=== PATIENT | male | born 1935 | race Caucasian/White ===

== ENCOUNTER 2024-02-07 19:39 | Observation (INO) | payer MEDICARE ==
[~2024-02-07] VITALS: Ht 177.8 cm; Wt 63.4 kg
[2024-02-07 20:25] LABS: BASOPHILS ABSOLUTE AUTO 0.05 K/mm3 (0.00-0.23); BASOPHILS PERCENT AUTO 1 % (0-2); EOSINOPHILS ABSOLUTE AUTO 0.08 K/mm3 (0.00-0.68); EOSINOPHILS PERCENT AUTO 1 % (0-6); Hematocrit 29.2 % (37.0-53.0); Hemoglobin 9.7 g/dL (13.5-17.5); IMMATURE GRAN ABSOLUTE AUTO 0.04 K/mm3 (0.00-0.10); IMMATURE GRAN PERCENT AUTO 1 % (0-1); LYMPHOCYTES PERCENT AUTO 18 % (21-46); MONOCYTES ABSOLUTE AUTO 0.73 K/mm3 (0.16-1.47); MONOCYTES PERCENT AUTO 8 % (4-13); Mean Corpuscular HGB 28.9 pg (26.0-34.0); Mean Corpuscular HGB Conc 33.2 g/dL (31.5-36.5); Mean Corpuscular Volume 87 fL (80-100); Mean Platelet Volume 11.4 fL (9.1-12.4); NEUTROPHILS ABSOLUTE AUTO 6.26 K/mm3 (1.96-9.15); NEUTROPHILS PERCENT AUTO 71 % (41-73); Platelet Count 196 K/mm3 (150-400); RDW Coefficient Variation 16.6 % (11.7-14.2); Red Blood Cell Count 3.36 M/mm3 (4.30-5.90); White Blood Cell Count 8.76 K/mm3 (4.00-11.30)
[2024-02-07 20:41] LABS: International Normalized Ratio 1.17; Prothrombin Time Results 12.4 Sec (9.7-11.5)
[2024-02-07 20:44] LABS: Albumin, Blood 3.2 g/dL (3.4-5.0); Albumin/Globulin Ratio 0.8 (0.8-1.8); Bilirubin, Total 1.6 mg/dL (0.1-1.0); Bun/Creatinine Ratio 20.8 (12.0-20.0); Calcium, Blood 8.6 mg/dL (8.5-10.1); Creatinine, Blood 0.91 mg/dL (0.60-1.20); Globulin, Blood 4.1 g/dL (2.2-4.0); Potassium, Blood 3.3 mmol/L (3.5-5.5); Total Protein, Blood 7.3 g/dL (6.4-8.2)
[2024-02-08] MEDS ORDERED: Potassium Chloride 10 Meq Tablet SA PO ONE (03:50)
[2024-02-08] MEDS ORDERED: Mag Sulfate 1 GM/D5% 100ML 100 ML IV STA (07:55)
[2024-02-08 08:43] VITALS: BP 145/60
[2024-02-08] MEDS ORDERED: Apixaban 5 MG Tab PO SCH (09:00)
[2024-02-08 09:06] LABS: BASOPHILS ABSOLUTE AUTO 0.05 K/mm3 (0.00-0.23); BASOPHILS PERCENT AUTO 1 % (0-2); EOSINOPHILS ABSOLUTE AUTO 0.08 K/mm3 (0.00-0.68); EOSINOPHILS PERCENT AUTO 1 % (0-6); Hematocrit 28.1 % (37.0-53.0); Hemoglobin 9.1 g/dL (13.5-17.5); IMMATURE GRAN ABSOLUTE AUTO 0.02 K/mm3 (0.00-0.10); IMMATURE GRAN PERCENT AUTO 0 % (0-1); LYMPHOCYTES ABSOLUTE AUTO 1.44 K/mm3 (0.84-5.20); LYMPHOCYTES PERCENT AUTO 20 % (21-46); MONOCYTES ABSOLUTE AUTO 0.66 K/mm3 (0.16-1.47); MONOCYTES PERCENT AUTO 9 % (4-13); Mean Corpuscular HGB 28.1 pg (26.0-34.0); Mean Corpuscular HGB Conc 32.4 g/dL (31.5-36.5); Mean Corpuscular Volume 87 fL (80-100); Mean Platelet Volume 11.1 fL (9.1-12.4); NEUTROPHILS ABSOLUTE AUTO 5.01 K/mm3 (1.96-9.15); NEUTROPHILS PERCENT AUTO 69 % (41-73); Platelet Count 193 K/mm3 (150-400); RDW Coefficient Variation 16.5 % (11.7-14.2); RDW Standard Deviation 52.4 fL (35.1-46.3); Red Blood Cell Count 3.24 M/mm3 (4.30-5.90); White Blood Cell Count 7.26 K/mm3 (4.00-11.30)
[2024-02-08 09:22] LABS: Bun/Creatinine Ratio 19.9 (12.0-20.0); Calcium, Blood 8.8 mg/dL (8.5-10.1); Creatinine, Blood 0.81 mg/dL (0.60-1.20); Potassium, Blood 3.5 mmol/L (3.5-5.5)
[2024-02-08] MEDS ORDERED: ATOR10 PO (10:38)
[2024-02-08] MEDS ORDERED: FERSU300 PO (10:38)
[2024-02-08] MEDS ORDERED: LOPE2C PO (10:39)
[2024-02-08] MEDS ORDERED: OMEP20ER PO (10:40)
[2024-02-08] MEDS ORDERED: ELIQUIS5 M2 PO (10:41)
[2024-02-08] MEDS ORDERED: AMLO10 PO (10:41)
[2024-02-08] MEDS ORDERED: LISI5 PO (10:42)
[2024-02-08] MEDS ORDERED: THERA-D2000 UNIT PO (10:43)
[2024-02-08] MEDS ORDERED: FINA5 PO (10:43)
[2024-02-08] MEDS ORDERED: LUTEIN20 MG PO (10:44)
[2024-02-08 14:31] VITALS: BP 123/56
--- NOTE | 2024-02-08 16:54 | NUR ---
CONSULT CALLED TO DR SMITH
--- NOTE | 2024-02-08 17:19 | NUR ---
SHIFT SUMMARY PATIENT ARRIVED TO FLOOR THIS AM FROM ER. IV TO R ARM IN PLACE. L ARM WRAPED WRIST TO SHOULDER WITH ZARINA WRAP WHICH WAS REMOVED, HAND SHOWING 2+ EDEMA. ARM ELEVATED, SKIN BLACK/PURPLE IN COLOR, 2+ NON PITTING EDEMA THROUGHOUT ARM, FULL SENSATION. A/OX4. WILL GO FOR MRI THIS SHIFT. ORTHO CONSULT CALLED IN TO DR SMITH. RED BLANCHABLE COCCYX, MEPILEX APPLIED, EGG CRATE TO BED PLACED. MIXED CONTINENCE OF BOWEL AND BLADDER. PATIENT ABLE TO MAKE NEEDS KNOWN. CALL LIGHT IN REACH, BED LOW POSITION.
[2024-02-08] MEDS ORDERED: Atorvastatin 10 MG Tab PO SCH (21:00)
[2024-02-08] MEDS ORDERED: Lisinopril 5 MG Tab PO SCH (21:00)
[2024-02-08] MEDS ORDERED: Finasteride 5 MG Tab PO SCH (21:00)
[2024-02-08] MEDS ORDERED: Ferrous Sulfate 325 MG Tab PO SCH (21:00)
[2024-02-08 21:03] VITALS: BP 119/58
[2024-02-09 03:37] VITALS: BP 117/50
--- NOTE | 2024-02-09 04:36 | NUR ---
Pt denies c/o. No distress noted. Pt resting quietly.
[2024-02-09] MEDS ORDERED: Omeprazole 20 MG CapCR PO SCH (06:00)
[2024-02-09 06:08] LABS: BASOPHILS ABSOLUTE AUTO 0.03 K/mm3 (0.00-0.23); BASOPHILS PERCENT AUTO 0 % (0-2); EOSINOPHILS PERCENT AUTO 2 % (0-6); Hemoglobin 8.5 g/dL (13.5-17.5); IMMATURE GRAN ABSOLUTE AUTO 0.02 K/mm3 (0.00-0.10); IMMATURE GRAN PERCENT AUTO 0 % (0-1); LYMPHOCYTES PERCENT AUTO 16 % (21-46); MONOCYTES ABSOLUTE AUTO 0.64 K/mm3 (0.16-1.47); MONOCYTES PERCENT AUTO 9 % (4-13); Mean Corpuscular HGB 28.5 pg (26.0-34.0); Mean Corpuscular HGB Conc 32.7 g/dL (31.5-36.5); Mean Corpuscular Volume 87 fL (80-100); Mean Platelet Volume 11.4 fL (9.1-12.4); NEUTROPHILS ABSOLUTE AUTO 4.98 K/mm3 (1.96-9.15); NEUTROPHILS PERCENT AUTO 73 % (41-73); Platelet Count 176 K/mm3 (150-400); RDW Coefficient Variation 16.6 % (11.7-14.2); RDW Standard Deviation 53.1 fL (35.1-46.3); Red Blood Cell Count 2.98 M/mm3 (4.30-5.90); White Blood Cell Count 6.87 K/mm3 (4.00-11.30)
[2024-02-09 06:25] LABS: Bun/Creatinine Ratio 19.4 (12.0-20.0); Calcium, Blood 8.5 mg/dL (8.5-10.1); Creatinine, Blood 0.77 mg/dL (0.60-1.20); Magnesium, Blood 1.7 mg/dL (1.6-2.4); Potassium, Blood 3.4 mmol/L (3.5-5.5)
[2024-02-09 07:57] VITALS: BP 124/55
[2024-02-09] MEDS ORDERED: Cholecalciferol 1000 Unit Tablet (=25MCG) PO SCH (09:00)
[2024-02-09] MEDS ORDERED: LUTEIN 20 MG PO SCH (09:00)
[2024-02-09] MEDS ORDERED: AmLODIPine Besylate 5 MG Tab PO SCH (09:00)
[2024-02-09] MEDS ORDERED: Potassium Chloride 20 MEQ/15 ML UDC PO ONE (13:30)
== END 2024-02-09 14:43 | disposition home or self-care (01) ==
LOC: ER 19:39 → MEDS 19:40 → ERHOLD 19:40 → MEDS 02-08 08:36
PROVIDERS: Family Medicine; Physician Assistant; ADMIT Family Medicine
DX: S46.111A Strain of muscle, fascia and tendon of long head of biceps, right arm, initial encounter (principal); S40.021A Contusion of right upper arm, initial encounter; E87.6 Hypokalemia; E83.42 Hypomagnesemia; I25.10 Atherosclerotic heart disease of native coronary artery without angina pectoris; I48.20 Chronic atrial fibrillation, unspecified; Z66 Do not resuscitate; Z79.01 Long term (current) use of anticoagulants; Z79.899 Other long term (current) drug therapy; Z95.1 Presence of aortocoronary bypass graft; X58.XXXA Exposure to other specified factors, initial encounter
CPT/HCPCS: 36415; 73206; 73220; 80048; 80053; 83735; 85025; 85610; 85730; 93971; 96374; 99285-25; A9270; A9579; G0378; J3475; Q9967

== ENCOUNTER 2024-04-29 07:17 | Emergency (ER) | payer OTHER ==
[~2024-04-29] VITALS: Ht 180.3 cm; Wt 67.6 kg
[~2024-04-29 07:17] MED LIST: AMLO10 PO; ATOR10 PO; ELIQUIS5 M2 PO; FERSU300 PO; FINA5 PO; LISI5 PO; LOPE2C PO; LUTEIN20 MG PO; OMEP20ER PO; THERA-D2000 UNIT PO
[2024-04-29] MEDS ORDERED: FentaNYL Citrate 50 MCG/ML 2 ML Injection IV ONE (07:40)
[2024-04-29] MEDS ORDERED: Ondansetron HCl 2 MG / ML 2ML Vial IV ONE (07:40)
[2024-04-29] MEDS ORDERED: HYDR1TAB94 PO (08:58)
[2024-04-29 10:42] VITALS: BP 146/65
== END 2024-04-29 11:18 | disposition home or self-care (01) ==
LOC: ER 07:17
DX: S42.215A Unspecified nondisplaced fracture of surgical neck of left humerus, initial encounter for closed fracture (principal); S51.811A Laceration without foreign body of right forearm, initial encounter; S80.02XA Contusion of left knee, initial encounter; I10 Essential (primary) hypertension; E78.5 Hyperlipidemia, unspecified; K21.9 Gastro-esophageal reflux disease without esophagitis; W01.0XXA Fall on same level from slipping, tripping and stumbling without subsequent striking against object, initial encounter; Z79.899 Other long term (current) drug therapy
CPT/HCPCS: 29105; 73060; 73562-LT; 96374-59; 96375-59; 99283-25; J2405; J3010